=== PATIENT | female | born 1980 | race Caucasian/White ===

== ENCOUNTER → 2018-06-01 | Outpatient (CLI) | payer OTHER ==
[~2018-06-01] MED LIST: HYDCOR2.5C PR; LEVSOD150
== END | disposition home or self-care (01) ==
LOC: LAB 16:07 → LAB SHORT 16:07
DX: E03.9 Hypothyroidism, unspecified (principal)
CPT/HCPCS: 84443

== ENCOUNTER → 2018-06-08 | Outpatient (CLI) | payer OTHER | END | disposition home or self-care (01) | LOC: LAB SHORT 14:54 → LAB EV 14:54 | DX: N39.0 Urinary tract infection, site not specified (principal) | CPT/HCPCS: 87086 ==

== ENCOUNTER 2019-04-04 20:51 | Emergency (ER) | payer OTHER ==
[~2019-04-04] VITALS: Ht 177.8 cm; Wt 136.1 kg
[2019-04-04 22:26] LABS: BASOPHILS ABSOLUTE AUTO 0.05 K/mm3 (0.00-0.23); BASOPHILS PERCENT AUTO 0 % (0-2); EOSINOPHILS ABSOLUTE AUTO 0.22 K/mm3 (0.00-0.68); EOSINOPHILS PERCENT AUTO 2 % (0-6); Hematocrit 37.3 % (33.0-51.0); Hemoglobin 11.8 g/dL (11.5-16.0); IMMATURE GRAN ABSOLUTE AUTO 0.03 K/mm3 (0.00-0.10); IMMATURE GRAN PERCENT AUTO 0 % (0-1); LYMPHOCYTES ABSOLUTE AUTO 3.05 K/mm3 (0.84-5.20); LYMPHOCYTES PERCENT AUTO 27 % (21-46); MONOCYTES ABSOLUTE AUTO 0.76 K/mm3 (0.16-1.47); MONOCYTES PERCENT AUTO 7 % (4-13); Mean Corpuscular HGB 25.1 pg (26.0-34.0); Mean Corpuscular HGB Conc 31.6 g/dL (31.5-36.5); Mean Corpuscular Volume 79 fL (80-100); Mean Platelet Volume 8.9 fL (9.1-12.4); NEUTROPHILS PERCENT AUTO 64 % (41-73); Platelet Count 394 K/mm3 (150-400); RDW Coefficient Variation 14.4 % (11.7-14.2); RDW Standard Deviation 41.5 fL (35.1-46.3); Red Blood Cell Count 4.71 M/mm3 (3.80-5.20); White Blood Cell Count 11.51 K/mm3 (4.00-11.30)
[2019-04-04 22:49] LABS: Alanine Aminotransfer (ALT/SGP 35 U/L (12-78); Albumin, Blood 3.4 g/dL (3.4-5.0); Albumin/Globulin Ratio 0.8 (0.8-1.8); Alk Phos 106 U/L (50-136); Anion Gap 8 mmol/L (6-16); Aspartate Aminotrans (AST/SGOT 17 U/L (12-37); Bilirubin, Total 0.2 mg/dL (0.1-1.0); Blood Urea Nitrogen 8 mg/dL (8-24); Bun/Creatinine Ratio 9.6 (12.0-20.0); CO2, Blood 24 mmol/L (21-32); Calcium, Blood 8.6 mg/dL (8.5-10.1); Chloride, Blood 108 mmol/L (98-108); Creatinine, Blood 0.84 mg/dL (0.40-1.00); Globulin, Blood 4.2 g/dL (2.2-4.0); Glomerular Filtration Rate >60 (60-); Glucose, Blood 108 mg/dL (70-99); Potassium, Blood 3.4 mmol/L (3.5-5.5); Sodium, Blood 140 mmol/L (136-145); Total Protein, Blood 7.6 g/dL (6.4-8.2); Troponin I <0.015 ng/mL (0.000-0.040)
[2019-04-04 23:46] LABS: Free Thyroxine 0.87 ng/dL (0.70-1.60)
[2019-04-04 23:48] LABS: Triiodothyronine, Free 2.81 pg/mL (2.18-3.98)
== END 2019-04-05 01:02 | disposition home or self-care (01) ==
LOC: ER 20:51
PROVIDERS: Physician Assistant
DX: R00.2 Palpitations (principal); Z88.1 Allergy status to other antibiotic agents; Z91.011 Allergy to milk products; Z88.8 Allergy status to other drugs, medicaments and biological substances; Z91.018 Allergy to other foods
CPT/HCPCS: 36415; 71046; 80053; 84439; 84443; 84481; 84484; 85025; 85379; 93005; 93010; 99284-25

== ENCOUNTER 2021-02-14 10:07 | Emergency (ER) | payer OTHER ==
[~2021-02-14] VITALS: Ht 177.8 cm; Wt 136.1 kg
[2021-02-14] MEDS ORDERED: CYCL10 PO (13:49)
[2021-02-14] MEDS ORDERED: IBUP400 PO (13:49)
[2021-02-14] MEDS ORDERED: HYDR1TAB94 PO (13:49)
== END 2021-02-14 14:14 | disposition home or self-care (01) ==
LOC: ER 10:07
DX: M54.5 Low back pain (principal); M79.18 Myalgia, other site; Z91.011 Allergy to milk products; Z88.0 Allergy status to penicillin; Z88.1 Allergy status to other antibiotic agents
CPT/HCPCS: 72100; 96372; 99283-25; A9270; J1885

== ENCOUNTER 2021-08-28 04:32 | Inpatient (IN) | payer OTHER ==
[~2021-08-28] VITALS: Ht 177.8 cm; Wt 134.8 kg
[~2021-08-28 04:32] MED LIST changes: +CYCL10 PO; +HYDR1TAB94 PO; +IBUP400 PO
[2021-08-28] MEDS ORDERED: DOXY100 PO (04:51)
[2021-08-28 05:02] LABS: BASOPHILS ABSOLUTE AUTO 0.09 K/mm3 (0.00-0.23); BASOPHILS PERCENT AUTO 0 % (0-2); EOSINOPHILS ABSOLUTE AUTO 0.14 K/mm3 (0.00-0.68); EOSINOPHILS PERCENT AUTO 1 % (0-6); Hematocrit 37.2 % (33.0-51.0); Hemoglobin 11.8 g/dL (11.5-16.0); IMMATURE GRAN ABSOLUTE AUTO 0.16 K/mm3 (0.00-0.10); IMMATURE GRAN PERCENT AUTO 1 % (0-1); LYMPHOCYTES ABSOLUTE AUTO 3.36 K/mm3 (0.84-5.20); LYMPHOCYTES PERCENT AUTO 16 % (21-46); MONOCYTES ABSOLUTE AUTO 1.79 K/mm3 (0.16-1.47); MONOCYTES PERCENT AUTO 9 % (4-13); Mean Corpuscular HGB 24.3 pg (26.0-34.0); Mean Corpuscular HGB Conc 31.7 g/dL (31.5-36.5); Mean Corpuscular Volume 77 fL (80-100); Mean Platelet Volume 8.9 fL (9.1-12.4); NEUTROPHILS PERCENT AUTO 73 % (41-73); Platelet Count 470 K/mm3 (150-400); RDW Coefficient Variation 15.8 % (11.7-14.2); RDW Standard Deviation 43.1 fL (35.1-46.3); Red Blood Cell Count 4.86 M/mm3 (3.80-5.20); White Blood Cell Count 20.64 K/mm3 (4.00-11.30)
[2021-08-28 05:32] LABS: Alanine Aminotransfer (ALT/SGP 60 U/L (12-78); Albumin/Globulin Ratio 0.6 (0.8-1.8); Alk Phos 109 U/L (50-136); Anion Gap 8 mmol/L (6-16); Aspartate Aminotrans (AST/SGOT 40 U/L (12-37); Bilirubin, Total 0.4 mg/dL (0.1-1.0); Blood Urea Nitrogen 15 mg/dL (8-24); CO2, Blood 22 mmol/L (21-32); Chloride, Blood 108 mmol/L (98-108); Creatinine, Blood 0.88 mg/dL (0.40-1.00); Globulin, Blood 4.8 g/dL (2.2-4.0); Glomerular Filtration Rate >60 (60-); Glucose, Blood 124 mg/dL (70-99); Sodium, Blood 138 mmol/L (136-145); Total Protein, Blood 7.8 g/dL (6.4-8.2); Troponin I <0.015 ng/mL (0.000-0.040)
[2021-08-28 07:55] LABS: Influenza A, PCR NEGATIVE (NEGATIVE); Influenza B, PCR NEGATIVE (NEGATIVE); Resp Syncytial Virus, PCR NEGATIVE (NEGATIVE)
[2021-08-28 07:59] LABS: SARS-Cov-2 (COVID-19) PCR, MMC POSITIVE (NEGATIVE)
--- NOTE | 2021-08-28 18:35 | NUR ---
PATIENT A/OX4, UP WITH SBA TO RESTROOM. BILATERAL PE'S AND RLE DVT, ON XARELTO TO TREAT. REPORTS SHARP PAIN TO R CHEST AND UPPER BACK WITH MOVEMENT AND INHALATION. MEDICATING WITH DILAUDID AND PO PAIN MEDICATION TO TREAT. VSS, ON 2LO2 TO MAINTAIN SATS. SKIN INTACT. ST ON TELE AT 105-110. CALM AND COOPERATIVE WITH CARE.
--- NOTE | 2021-08-29 04:40 | NUR ---
SHIFT SUMMARY PT HAS BEEN IN A SIGNIFICANT AMOUNT OF PAIN TONIGHT. MEDICATED SEVERAL TIMES PER EMAR. PT BLOOD PRESSURE HAS BEEN ELEVATED AND WAS GIVEN A DOSE OF COZAR PER DR NEFF. PT ALSO MEDICATED WITH XANAX FOR ANXIETY. PT UP TO THE BATHROOM WITH ASSISTANCE. PT HAS BEEN SINUS TACH IN THE 100'S FOR MOST OF THE NIGHT. CALL LIGHT WITHIN REACH AND WILL CONTINUE TO MONITOR.
[2021-08-29 05:07] LABS: BASOPHILS ABSOLUTE AUTO 0.06 K/mm3 (0.00-0.23); BASOPHILS PERCENT AUTO 0 % (0-2); EOSINOPHILS ABSOLUTE AUTO 0.05 K/mm3 (0.00-0.68); EOSINOPHILS PERCENT AUTO 0 % (0-6); Hematocrit 33.9 % (33.0-51.0); Hemoglobin 10.7 g/dL (11.5-16.0); IMMATURE GRAN ABSOLUTE AUTO 0.19 K/mm3 (0.00-0.10); IMMATURE GRAN PERCENT AUTO 1 % (0-1); LYMPHOCYTES ABSOLUTE AUTO 1.87 K/mm3 (0.84-5.20); LYMPHOCYTES PERCENT AUTO 10 % (21-46); MONOCYTES ABSOLUTE AUTO 2.32 K/mm3 (0.16-1.47); MONOCYTES PERCENT AUTO 12 % (4-13); Mean Corpuscular HGB 24.3 pg (26.0-34.0); Mean Corpuscular HGB Conc 31.6 g/dL (31.5-36.5); Mean Corpuscular Volume 77 fL (80-100); NEUTROPHILS ABSOLUTE AUTO 15.15 K/mm3 (1.96-9.15); NEUTROPHILS PERCENT AUTO 77 % (41-73); Platelet Count 336 K/mm3 (150-400); RDW Coefficient Variation 15.7 % (11.7-14.2); RDW Standard Deviation 43.8 fL (35.1-46.3); White Blood Cell Count 19.64 K/mm3 (4.00-11.30)
[2021-08-29 05:31] LABS: Albumin, Blood 2.5 g/dL (3.4-5.0); Anion Gap 7 mmol/L (6-16); Blood Urea Nitrogen 12 mg/dL (8-24); Bun/Creatinine Ratio 17.9 (12.0-20.0); CO2, Blood 22 mmol/L (21-32); Calcium, Blood 8.8 mg/dL (8.5-10.1); Chloride, Blood 103 mmol/L (98-108); Creatinine, Blood 0.67 mg/dL (0.40-1.00); Glomerular Filtration Rate >60 (60-); Glucose, Blood 127 mg/dL (70-99); Phosphorus, Blood 3.3 mg/dL (2.5-4.9); Potassium, Blood 4.3 mmol/L (3.5-5.5); Sodium, Blood 132 mmol/L (136-145)
--- NOTE | 2021-08-29 05:51 | NUR ---
PT STILL POSITIVE FOR COVID OF YESTERDAY EVENING. HOWEVER, INFECTION CONTROL CALLED THIS AM AND INFORMED JAMES TORRES THAT SHE IS OUTSIDE OF THE WINDOW FOR BEING CONTAGIOUS AND THAT SHE DOES NOT NEED TO BE ISOLATION ANY LONGER.
--- NOTE | 2021-08-29 17:22 | NUR ---
SHIFT SUMMARY PATIENT IS ALERT AND ORIENTATED X3-4. SLOW TO RESPOND DUE TO PAIN AND ANXIETY. PATIENT IS ON 3L OF OXYGEN SATTING ABOVE 95 PERCENT. PATIENT HAS BEEN MEDICATED FOR PAIN AND ANXIETY. WHEN PATIENT GETS ANXIOUS THE HR IS HOVERING IN THE 120S. PATIENT STATES "I AM HAVING TROUBLE BREATHING" BUT WHEN ASSESSED PATIENT IS SATTING FINE BUT HR IS ELEVATED. VITAL SIGNS REVIEWED. WILL CONTINUE TO MONITOR UNTIL SHIFT CHANGE.
--- NOTE | 2021-08-30 03:44 | NUR ---
SHIFT SUMMARY PT HAS BEEN RESTING MOST OF THE EVENING AND NIGHT. COMPLAINS OF PAIN IN CHEST AND RIBS. PT MEDICATED PER EMAR. STANDBY ASSIST. A&O X 4. ON 3L OF O2. TELE SINUS TACH IN THE 100'S. PT HAS BEEN ANXIOUS THIS EVENING. CALL LIGHT IS WITHIN REACH AND WILL CONTINUE TO MONITOR.
[2021-08-30 05:38] LABS: Anion Gap 9 mmol/L (6-16); Blood Urea Nitrogen 10 mg/dL (8-24); Bun/Creatinine Ratio 15.6 (12.0-20.0); CO2, Blood 25 mmol/L (21-32); Calcium, Blood 8.7 mg/dL (8.5-10.1); Chloride, Blood 100 mmol/L (98-108); Creatinine, Blood 0.64 mg/dL (0.40-1.00); Glomerular Filtration Rate >60 (60-); Glucose, Blood 117 mg/dL (70-99); Potassium, Blood 4.2 mmol/L (3.5-5.5); Sodium, Blood 134 mmol/L (136-145)
--- NOTE | 2021-08-30 16:13 | NUR ---
SHIFT SUMMARY PATIENT IS ALERT AND ORIENTATED X3-4. PATIENT IS SLOW TO REPOND DUE TO PAIN. ANXIETY HAS BEEN BETTER CONTROLLED TODAY. PATIENT HAS HAD EPISODES TO TACHYCARDIA WHILE USING THE RESTROOM, OTHERWISE HEARTRATE HAS BEEN BETTER CONTROLLED TODAY. PATIENT HAS BEEN MEDICATED PER EMAR FOR PAIN. PATIENT IS ON 3 LITERS OF OXYGEN. VITAL SIGNS REVIEWED. WILL MONITOR UNTIL SHIFT CHANGE.
--- NOTE | 2021-08-31 06:16 | NUR ---
SHIFT SUMMARY AOX4. TELE ST HR 100-140'S, DEPENDING ON PT ACTIVITY. REST OF VSS. SPO2 100% ON 3L O2, TITRATED TO 1L FOR COMFORT & SPO2 @97%. LS DIM T/O MORE ON RLL. E/U RESP. PT ANXIOUS @TIMES R/T BREATHING & PAIN REAGARDING INSPIRATION. MEDICATED 2X c 0.5MG DILAUDID, 2X c O.5MG ATIVAN, 1X c 5MG ROXICODONE & TYLENOL FOR 8-9/10 R RIB CAGE PAIN. DENIES N/V. CALL LIGHT IN REACH & PT ABLE TO MAKE NEEDS KNOWN. WCTM UNTIL DAY NURSE ASSUMES CARE.
--- NOTE | 2021-08-31 18:11 | NUR ---
SHIFT SUMMARY; PATIENT IS ENCOURAGED TO USE HER INCENTIVE SPIROMETER DURING DAY. REMINDED EVERY TIME THIS RN OR RN BONE MARROW TRANSPLANT ENTERS ROOM. SHE IS MEDICATED X 2 FOR PAIN. SHE HAS FLAT AFFECT MOST OF DAY ONLY SMILING TOWARDS END OF SHIFT WHEN JOKING WITH STAFF. PATIENT COMPLAINS OF SCRATCHY THROAT AND WOULD LIKE THROAT LOZENGE. IS CALLED AND OK FOR CEPACOL THROAT LOZENGES PRN. PATIENT AMBULATES TO AND FROM BATHROOM DURING DAY WITHOUT ASSIST. SHE IS NOTED TO ASK FOR WATER AND SODA MULTIPLE TIMES DURING THE DAY. LUNGS ARE DIMISHED IN THE BASES WITH BARELY ANY MOVEMENT NOTED. SHE IS REMINDED TO COUGH AND DEEP BREATH. PATIENT DID VERBALIZE UNDERSTANDING. TONJA YANEZ RN
--- NOTE | 2021-09-01 04:21 | NUR ---
SHIFT SUMMARY A/OX4, SBA TO BATHROOM. VERY ANXIOUS T/O SHIFT. C/O 05/12 PLEURITIC PAIN, MEDICATED PER EMAR. DRY, HACKING COUGH. VSS, NO ACUTE CHANGES AT THIS TIME. BED IN LOWEST POSITION WITH CALL LIGHT IN REACH. WILL CONTINUE TO MONITOR AND REPORT TO ONCOMING RN.
[2021-09-01 04:45] LABS: BASOPHILS ABSOLUTE AUTO 0.03 K/mm3 (0.00-0.23); BASOPHILS PERCENT AUTO 0 % (0-2); EOSINOPHILS PERCENT AUTO 1 % (0-6); Hematocrit 27.8 % (33.0-51.0); Hemoglobin 9.1 g/dL (11.5-16.0); IMMATURE GRAN ABSOLUTE AUTO 0.12 K/mm3 (0.00-0.10); IMMATURE GRAN PERCENT AUTO 1 % (0-1); LYMPHOCYTES ABSOLUTE AUTO 2.02 K/mm3 (0.84-5.20); LYMPHOCYTES PERCENT AUTO 13 % (21-46); MONOCYTES ABSOLUTE AUTO 1.55 K/mm3 (0.16-1.47); MONOCYTES PERCENT AUTO 10 % (4-13); Mean Corpuscular HGB 24.4 pg (26.0-34.0); Mean Corpuscular HGB Conc 32.7 g/dL (31.5-36.5); Mean Corpuscular Volume 75 fL (80-100); Mean Platelet Volume 9.1 fL (9.1-12.4); NEUTROPHILS ABSOLUTE AUTO 11.35 K/mm3 (1.96-9.15); NEUTROPHILS PERCENT AUTO 75 % (41-73); Platelet Count 321 K/mm3 (150-400); RDW Coefficient Variation 15.8 % (11.7-14.2); Red Blood Cell Count 3.73 M/mm3 (3.80-5.20); White Blood Cell Count 15.17 K/mm3 (4.00-11.30)
[2021-09-01 05:53] LABS: Anion Gap 11 mmol/L (6-16); Blood Urea Nitrogen 11 mg/dL (8-24); Bun/Creatinine Ratio 15.7 (12.0-20.0); CO2, Blood 26 mmol/L (21-32); Calcium, Blood 8.3 mg/dL (8.5-10.1); Chloride, Blood 101 mmol/L (98-108); Glomerular Filtration Rate >60 (60-); Glucose, Blood 103 mg/dL (70-99); Potassium, Blood 3.8 mmol/L (3.5-5.5); Sodium, Blood 138 mmol/L (136-145)
[2021-09-01 12:22] LABS: Hematocrit 30.9 % (33.0-51.0); Hemoglobin 9.9 g/dL (11.5-16.0)
--- NOTE | 2021-09-01 18:00 | NUR ---
SHIFT SUMMARY; PATIENT REMAINS ANXIOUS DURING DAY. SHE IS ENCOURAGED TO GET UP AND MOVE ABOUT IN ROOM. HOWEVER SAYS IT IS TOO PAINFULL TO BREATH WHEN UP AMBULATING. PATIENT IS ENCOURAGED TO USE INCENTIVE SPIROMETER. PATIENT IS STILL ON HER MENSES AND IS VERY EMBARRASSED TO ASK FOR SUPPLIES. EXTRA FEMININE SUPPLIES ARE PLACED IN ROOM TO PROTECT PATIENT PRIVACY. SHE COMPLAINS OF PAIN BEHIND HER RIGHT EYE TODAY. NO REDNESS SWELLING OR PHOTOPHOBIA NOTED. NO NYSTAGMUS. PERRLA. PATIENT COMPLAINS OF SORE THROAT BUT REFUSES TO TAKE CEPACOL THROAT LOZENGES. ASKING FOR ROBITTUSSIN COUGH MEDICINE INSTEAD. PATIENT ENCOURAGED TO DRINK FLUIDS AND TO TAKE DEEP RELAXATION BREATHS. WILL REMAIN AVAILABLE FOR THIS PATIENT FOR ANY WANTS OR NEEDS THAT MAY COME UP TILL SHIFT CHANGE AND REPORT.
[2021-09-02 05:35] LABS: BASOPHILS ABSOLUTE AUTO 0.03 K/mm3 (0.00-0.23); BASOPHILS PERCENT AUTO 0 % (0-2); EOSINOPHILS ABSOLUTE AUTO 0.18 K/mm3 (0.00-0.68); EOSINOPHILS PERCENT AUTO 1 % (0-6); Hematocrit 27.6 % (33.0-51.0); Hemoglobin 8.7 g/dL (11.5-16.0); IMMATURE GRAN PERCENT AUTO 1 % (0-1); LYMPHOCYTES ABSOLUTE AUTO 2.27 K/mm3 (0.84-5.20); LYMPHOCYTES PERCENT AUTO 18 % (21-46); MONOCYTES ABSOLUTE AUTO 1.34 K/mm3 (0.16-1.47); MONOCYTES PERCENT AUTO 10 % (4-13); Mean Corpuscular HGB 23.9 pg (26.0-34.0); Mean Corpuscular HGB Conc 31.5 g/dL (31.5-36.5); Mean Corpuscular Volume 76 fL (80-100); Mean Platelet Volume 9.3 fL (9.1-12.4); NEUTROPHILS ABSOLUTE AUTO 9.03 K/mm3 (1.96-9.15); NEUTROPHILS PERCENT AUTO 70 % (41-73); Platelet Count 365 K/mm3 (150-400); RDW Coefficient Variation 15.9 % (11.7-14.2); RDW Standard Deviation 43.8 fL (35.1-46.3); Red Blood Cell Count 3.64 M/mm3 (3.80-5.20); White Blood Cell Count 12.95 K/mm3 (4.00-11.30)
--- NOTE | 2021-09-02 07:11 | NUR ---
STORM STARTED THE SHIFT COMPLAINING OF PAIN, WAS ADMINISTERED ATIVAN FOR HER ANXIETY AND HYDROMORPHONE. THE HYDROMORPHONE SEEMED TO HELP EASE HER PAIN, SHE SLEPT FROM AROUND MIDNIGHT UNTIL THE MORNING
[2021-09-02 08:44] LABS: Percent Saturation 11.4 % (15.0-50.0)
--- NOTE | 2021-09-02 17:52 | NUR ---
SHIFT SUMMARY MEDICATED FOR PAIN X2. PATIENT DENIES NAUSEA AND SHORTNESS OF BREATH AT REST. PATIENT REPORTS SOB WITH ACTIVITY. PATIENT ON 2L VIA N/C SATURATING IN THE MID 90S. PATIENT IS INDEPENDENT IN ROOM. PATIENT WAS MEDICATED X2 FOR ANXIETY. PATIENT WAS FOUND CRYING THIS MORNING, STATING THAT SHE IS TIRED OF BEING IN PAIN AND SICK. PATIENT ALSO REPORTS SHE COULDNT SLEEP LAST NIGHT. TALKED WITH PATIENT FOR AWHILE. PATIENT IS EATING AND DRINKING WELL. PATIENT IS PLEASANT AND COPPERATIVE WITH CARE.
[2021-09-03 05:31] LABS: BASOPHILS ABSOLUTE AUTO 0.04 K/mm3 (0.00-0.23); BASOPHILS PERCENT AUTO 0 % (0-2); EOSINOPHILS ABSOLUTE AUTO 0.16 K/mm3 (0.00-0.68); EOSINOPHILS PERCENT AUTO 1 % (0-6); Hematocrit 27.8 % (33.0-51.0); Hemoglobin 8.7 g/dL (11.5-16.0); IMMATURE GRAN ABSOLUTE AUTO 0.17 K/mm3 (0.00-0.10); IMMATURE GRAN PERCENT AUTO 1 % (0-1); LYMPHOCYTES ABSOLUTE AUTO 2.45 K/mm3 (0.84-5.20); LYMPHOCYTES PERCENT AUTO 20 % (21-46); MONOCYTES ABSOLUTE AUTO 1.08 K/mm3 (0.16-1.47); MONOCYTES PERCENT AUTO 9 % (4-13); Mean Corpuscular HGB Conc 31.3 g/dL (31.5-36.5); Mean Corpuscular Volume 77 fL (80-100); NEUTROPHILS ABSOLUTE AUTO 8.33 K/mm3 (1.96-9.15); NEUTROPHILS PERCENT AUTO 68 % (41-73); Platelet Count 385 K/mm3 (150-400); RDW Coefficient Variation 15.9 % (11.7-14.2); RDW Standard Deviation 44.1 fL (35.1-46.3); Red Blood Cell Count 3.63 M/mm3 (3.80-5.20); White Blood Cell Count 12.23 K/mm3 (4.00-11.30)
[2021-09-03 05:56] LABS: Anion Gap 7 mmol/L (6-16); Blood Urea Nitrogen 8 mg/dL (8-24); Bun/Creatinine Ratio 11.6 (12.0-20.0); CO2, Blood 28 mmol/L (21-32); Calcium, Blood 8.6 mg/dL (8.5-10.1); Chloride, Blood 104 mmol/L (98-108); Creatinine, Blood 0.69 mg/dL (0.40-1.00); Glomerular Filtration Rate >60 (60-); Glucose, Blood 94 mg/dL (70-99); Potassium, Blood 4.1 mmol/L (3.5-5.5); Sodium, Blood 139 mmol/L (136-145)
--- NOTE | 2021-09-03 06:30 | NUR ---
STORM REQUESTED PAIN MEDS ONLY ONCE LAST NIGHT SHOWED NO SIGNS OF ANXIETY. hAD SOME PRN COUGH MEDICINES BECAUSE SHE WAS COUGHING A LOT. MEDS SEEMED EFFECTIVE IN ELIMINATING THE COUGH.REMAINED INDEPENDENT AND ORIENTED TO OWN ABILITY (X4). SCANT AMOUNT OF BLOOD IN SPUTUM DURING COUGHING EPISODE.
[2021-09-03] MEDS ORDERED: B-12500 MC2 PO (11:53)
[2021-09-03] MEDS ORDERED: XARELTO20 MG PO (11:54)
[2021-09-03] MEDS ORDERED: ACET500 PO (11:55)
[2021-09-03] MEDS ORDERED: OXAYDO5 M1 PO (11:56)
[2021-09-03] MEDS ORDERED: Q-Tussin100 MG/5 M PO (11:58)
--- NOTE | 2021-09-03 14:22 | NUR ---
DISCHARGE PATIENT TRANSPORTED VIA WHEELCHAIR TO PRIVATE VEHICLE. DISCHARGE INSTRUCTIONS EXPLAINED TO PATIENT. PATIENT STATED UNDERSTANDING. PACKET SENT WITH PATIENT. BELONGINGS SENT WITH PATIENT. IV REMOVED WITHOUT DIFFICULTY. TELE REMOVED WITHOUT DIFFICULTY. MEDICATIONS FAXED TO PERFERRED PHARMACY. PCP TO CALL PATIENT TO SCHEDULE FOLLOW UP. HARD SCRIPTS SENT WITH PATIENT. MEDICAL RECORDS SENT TO PULOMONOLGY OFFICE FOR FOLLOW UP.
== END 2021-09-03 13:59 | disposition home or self-care (01) | DRG 177 ==
LOC: ER 04:32 → ERHOLD 08:05 → MEDS 09:05
PROVIDERS: Emergency Medicine; Family Medicine; Student in an Organized Health Care Education/Training Program; ADMIT Internal Medicine
PROC: 8E0ZXY6 Isolation (ICD-10-PCS; principal; 2021-08-28)
DX: U07.1 COVID-19 (principal); J96.01 Acute respiratory failure with hypoxia; I26.99 Other pulmonary embolism without acute cor pulmonale; I82.411 Acute embolism and thrombosis of right femoral vein; D62 Acute posthemorrhagic anemia; Z68.41 Body mass index [BMI] 40.0-44.9, adult; E03.9 Hypothyroidism, unspecified; R00.0 Tachycardia, unspecified; E66.01 Morbid (severe) obesity due to excess calories; D51.9 Vitamin B12 deficiency anemia, unspecified; F17.210 Nicotine dependence, cigarettes, uncomplicated; Z90.49 Acquired absence of other specified parts of digestive tract; Z88.0 Allergy status to penicillin; Z88.1 Allergy status to other antibiotic agents; Z91.018 Allergy to other foods; Z79.2 Long term (current) use of antibiotics
CPT/HCPCS: 0241U; 36415; 71046; 71260; 80048; 80053; 80069; 82607; 82728; 82746; 83540; 83550; 83605; 84145; 84443; 84484; 85014; 85018; 85025; 87040; 93005; 93010; 93306; 93970; 94667; 94760; 94761; 96365; 96366; 96367; 96375; 96376; 99285-25; A9270; J0456; J0696; J1170; J2405; J7030; J7050; J7120; Q9967

== ENCOUNTER 2024-08-22 23:26 | Observation (INO) | payer OTHER ==
[~2024-08-22] VITALS: Ht 175.3 cm; Wt 133.0 kg
[~2024-08-22 23:26] MED LIST changes: +ACET500 PO; +B-12500 MC2 PO; +DOXY100 PO; +OXAYDO5 M1 PO; +Q-Tussin100 MG/5 M PO; +XARELTO15 M1 PO; +XARELTO20 MG PO
[2024-08-23] MEDS ORDERED: NS 1,000 ML IV SCH (00:55)
[2024-08-23] MEDS ORDERED: FentaNYL Citrate 50 MCG/ML 2 ML Injection IV ONE (00:55)
[2024-08-23] MEDS ORDERED: Ketorolac Tromethamine 30mg Vial IV ONE (00:55)
[2024-08-23 01:05] LABS: BASOPHILS ABSOLUTE AUTO 0.05 K/mm3 (0.00-0.23); BASOPHILS PERCENT AUTO 0 % (0-2); EOSINOPHILS ABSOLUTE AUTO 0.07 K/mm3 (0.00-0.68); EOSINOPHILS PERCENT AUTO 1 % (0-6); Hematocrit 33.4 % (33.0-51.0); Hemoglobin 10.5 g/dL (11.5-16.0); IMMATURE GRAN ABSOLUTE AUTO 0.07 K/mm3 (0.00-0.10); IMMATURE GRAN PERCENT AUTO 1 % (0-1); LYMPHOCYTES ABSOLUTE AUTO 1.47 K/mm3 (0.84-5.20); LYMPHOCYTES PERCENT AUTO 10 % (21-46); MONOCYTES ABSOLUTE AUTO 1.14 K/mm3 (0.16-1.47); MONOCYTES PERCENT AUTO 8 % (4-13); Mean Corpuscular HGB 22.8 pg (26.0-34.0); Mean Corpuscular HGB Conc 31.4 g/dL (31.5-36.5); Mean Corpuscular Volume 73 fL (80-100); Mean Platelet Volume 8.5 fL (9.1-12.4); NEUTROPHILS ABSOLUTE AUTO 12.29 K/mm3 (1.96-9.15); NEUTROPHILS PERCENT AUTO 81 % (41-73); Platelet Count 361 K/mm3 (150-400); RDW Coefficient Variation 16.2 % (11.7-14.2); RDW Standard Deviation 42.3 fL (35.1-46.3); Red Blood Cell Count 4.61 M/mm3 (3.80-5.20); White Blood Cell Count 15.09 K/mm3 (4.00-11.30)
[2024-08-23 01:21] LABS: Albumin, Blood 3.2 g/dL (3.4-5.0); Albumin/Globulin Ratio 0.7 (0.8-1.8); Bilirubin, Total 0.6 mg/dL (0.1-1.0); Bun/Creatinine Ratio 19.2 (12.0-20.0); Calcium, Blood 8.2 mg/dL (8.5-10.1); Creatinine, Blood 0.73 mg/dL (0.40-1.00); Globulin, Blood 4.3 g/dL (2.2-4.0); Potassium, Blood 3.8 mmol/L (3.5-5.5); Total Protein, Blood 7.5 g/dL (6.4-8.2)
[2024-08-23 01:28] LABS: International Normalized Ratio 1.3; Prothrombin Time Results 13.6 Sec (9.7-11.5)
[2024-08-23 05:47] VITALS: BP 148/87
[2024-08-23] MEDS ORDERED: FLU VACC TS2024-25(6MOS UP)/PF 45 MCG/0.5 ML SYRINGE IM ONE (06:10)
[2024-08-23] MEDS ORDERED: OxyCODONE HCL 5 MG TAB PO PRN (06:25)
[2024-08-23] MEDS ORDERED: Heparin Sodium,Porcine/0.5 NS 500 ML IV SCH (06:40)
[2024-08-23 06:52] LABS: BASOPHILS ABSOLUTE AUTO 0.05 K/mm3 (0.00-0.23); BASOPHILS PERCENT AUTO 0 % (0-2); EOSINOPHILS ABSOLUTE AUTO 0.12 K/mm3 (0.00-0.68); EOSINOPHILS PERCENT AUTO 1 % (0-6); Hematocrit 29.6 % (33.0-51.0); Hemoglobin 9.3 g/dL (11.5-16.0); IMMATURE GRAN ABSOLUTE AUTO 0.07 K/mm3 (0.00-0.10); IMMATURE GRAN PERCENT AUTO 1 % (0-1); LYMPHOCYTES ABSOLUTE AUTO 2.31 K/mm3 (0.84-5.20); LYMPHOCYTES PERCENT AUTO 19 % (21-46); MONOCYTES ABSOLUTE AUTO 1.14 K/mm3 (0.16-1.47); MONOCYTES PERCENT AUTO 9 % (4-13); Mean Corpuscular HGB 23.1 pg (26.0-34.0); Mean Corpuscular HGB Conc 31.4 g/dL (31.5-36.5); Mean Corpuscular Volume 74 fL (80-100); Mean Platelet Volume 8.5 fL (9.1-12.4); NEUTROPHILS ABSOLUTE AUTO 8.83 K/mm3 (1.96-9.15); NEUTROPHILS PERCENT AUTO 70 % (41-73); Platelet Count 287 K/mm3 (150-400); RDW Coefficient Variation 16.3 % (11.7-14.2); RDW Standard Deviation 43.6 fL (35.1-46.3); Red Blood Cell Count 4.02 M/mm3 (3.80-5.20); White Blood Cell Count 12.52 K/mm3 (4.00-11.30)
[2024-08-23 07:08] LABS: Percent Saturation 5.3 % (15.0-50.0)
[2024-08-23 07:33] VITALS: BP 146/89
[2024-08-23] MEDS ORDERED: Docusate Sodium 100 MG Cap PO SCH (09:00)
[2024-08-23] MEDS ORDERED: Ketorolac Tromethamine 30mg Vial IV PRN (09:15)
[2024-08-23] MEDS ORDERED: Pantoprazole Sodium 40 MG Injection IV SCH (10:00)
[2024-08-23 10:54] VITALS: BP 102/64
[2024-08-23] MEDS ORDERED: Iron Dextran 50 MG / ML 2ML Vial IV ONE (12:50)
[2024-08-23 13:18] VITALS: BP 117/72
[2024-08-23 13:22] LABS: Hematocrit 29.4 % (33.0-51.0); Hemoglobin 9.3 g/dL (11.5-16.0)
[2024-08-23] MEDS ORDERED: Heparin Sodium 5000 Units/ML 1ML MDV IV ONE (13:45)
[2024-08-23] MEDS ORDERED: Iron Dextran 975 MG in NS 250 ML IV ONE (14:00)
[2024-08-23 14:38] VITALS: BP 139/76
--- NOTE | 2024-08-23 18:04 | NUR ---
SHIFT SUMMARY A&O X4, OBEYS COMMANDS, ABLE TO MAKE NEEDS KNONW, IND IN ROOM, EDUCATED TO CALL IF THEY FELT UNSTEADY ON FEET AT ANY TIME. SPO2 GREATER THAN 95% ON RA DURING VITAL INTERVALS, PT REPORTS WORSENING PAIN DURING DEEP BREATHS, NO RESPRIRATORY DISTESS NOTED DURING THIS SHIFT. CONTINOUS CARDIAC MONITORING, SINUS RHYTHM, 80-100'S HR, DENIES CHEST PAIN. PT VOIDING IND IN BPR. PAIN LOCATED IN THE LEFT RIBS WORSESN WITH MOVMENT AND DEEP BREATHING BEING MANAGED WITH CURRENT ORDERS. PT REPORTS FEELING OF CONSIPATION AND NAUSEA, PT REPORTS BM THIS SHIFT, PT REPORTS IMPROVEMENT OF NAUSEA WITH CRACKERS. ECHO DONE AND RESULTED THIS SHIFT. MD CALLED THIS AM TO GET OTHER ORDERS FOR PAIN MANGAMENT, NEW ORDERS PLACED. 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 PT STARTED ON INFED HAD NO REACTION TO INITIAL DOSE OR INFUSION.
[2024-08-23 20:20] LABS: Hematocrit 28.5 % (33.0-51.0)
[2024-08-23 20:30] VITALS: BP 119/68
[2024-08-24 03:18] LABS: Hematocrit 28.6 % (33.0-51.0)
[2024-08-24 03:50] LABS: Albumin, Blood 2.6 g/dL (3.4-5.0); Albumin/Globulin Ratio 0.7 (0.8-1.8); Bilirubin, Total 0.2 mg/dL (0.1-1.0); Calcium, Blood 8.1 mg/dL (8.5-10.1); Creatinine, Blood 0.87 mg/dL (0.40-1.00); Globulin, Blood 3.9 g/dL (2.2-4.0); Potassium, Blood 3.9 mmol/L (3.5-5.5); Total Protein, Blood 6.5 g/dL (6.4-8.2)
[2024-08-24] MEDS ORDERED: Dose Adjust by Pharmacy XX STA (04:02)
[2024-08-24 05:46] LABS: BASOPHILS ABSOLUTE AUTO 0.06 K/mm3 (0.00-0.23); BASOPHILS PERCENT AUTO 1 % (0-2); EOSINOPHILS PERCENT AUTO 2 % (0-6); IMMATURE GRAN ABSOLUTE AUTO 0.06 K/mm3 (0.00-0.10); IMMATURE GRAN PERCENT AUTO 1 % (0-1); LYMPHOCYTES ABSOLUTE AUTO 2.53 K/mm3 (0.84-5.20); LYMPHOCYTES PERCENT AUTO 23 % (21-46); MONOCYTES ABSOLUTE AUTO 0.99 K/mm3 (0.16-1.47); MONOCYTES PERCENT AUTO 9 % (4-13); Mean Corpuscular HGB 23.3 pg (26.0-34.0); Mean Corpuscular HGB Conc 31.2 g/dL (31.5-36.5); Mean Corpuscular Volume 75 fL (80-100); Mean Platelet Volume 9.4 fL (9.1-12.4); NEUTROPHILS ABSOLUTE AUTO 7.01 K/mm3 (1.96-9.15); NEUTROPHILS PERCENT AUTO 65 % (41-73); Platelet Count 311 K/mm3 (150-400); RDW Coefficient Variation 16.4 % (11.7-14.2); RDW Standard Deviation 44.7 fL (35.1-46.3); Red Blood Cell Count 3.82 M/mm3 (3.80-5.20); White Blood Cell Count 10.85 K/mm3 (4.00-11.30)
[2024-08-24 07:56] VITALS: BP 144/76
[2024-08-24] MEDS ORDERED: Rivaroxaban 10 MG Tab PO SCH (08:15)
== END 2024-08-24 12:10 | disposition home or self-care (01) ==
LOC: ER 23:26 → PCU 23:27 → ERHOLD 23:27 → PCU 08-23 05:33
PROVIDERS: Emergency Medicine; ADMIT Student in an Organized Health Care Education/Training Program
DX: I26.99 Other pulmonary embolism without acute cor pulmonale (principal); E03.9 Hypothyroidism, unspecified; D64.9 Anemia, unspecified; E86.0 Dehydration; F17.290 Nicotine dependence, other tobacco product, uncomplicated; G89.29 Other chronic pain; M54.9 Dorsalgia, unspecified; Z79.899 Other long term (current) drug therapy; Z86.16 Personal history of COVID-19; Z88.1 Allergy status to other antibiotic agents; Z88.8 Allergy status to other drugs, medicaments and biological substances; Z91.011 Allergy to milk products
CPT/HCPCS: 36415; 80053; 82728; 83540; 83550; 83605; 83735; 83880; 84484; 85014; 85018; 85025; 85610; 85730; 86850; 86900; 86901; 93005; 93010; 93306; 93970; 94762; 96361; 96374-59; 96375; 96375-59; 96376; 99285-25; A9270; G0378; J1644; J1750; J1885; J2470; J3010; J7030; J7050